=== PATIENT | female | born 1935 | race Caucasian/White ===

== ENCOUNTER 2021-07-10 11:49 | Outpatient (CLI) | payer MEDICARE, OTHER, SELFPAY ==
--- NOTE | 2021-07-10 12:03 | MM_ITS ---
WS: [id number] BILATERAL SCREENING 3D TOMOSYNTHESIS DIGITAL MAMMOGRAM WITH CAD HISTORY: SCREENING COMPARISON: 02/24/2018 and 02/12/2017 Bilateral CC and MLO views submitted. Computer aided detection analyzed. Breast composition: The breasts are heterogeneously dense, which may obscure small masses. No suspici ous masses, microcalcifications or architectural distortion. Postsurgical changes are noted within th e anterior RIGHT breast. There are benign scattered calcifications and asymmetries which are stable. MM/[id number] IMPRESSION: BI-RADS: 2-Benign FOLLOW UP: 1 Year Follow-up
== END 2021-07-10 11:50 | disposition home or self-care (01) ==
LOC: RADSHAW 12:00
PROVIDERS: PCP Family Medicine; Visit Provider Family Medicine
DX: Z12.31 Encounter for screening mammogram for malignant neoplasm of breast (principal)
CPT/HCPCS: 77063; 77067

== ENCOUNTER 2022-12-03 13:46 | Outpatient (CLI) | payer MEDICARE, OTHER, SELFPAY ==
--- NOTE | 2022-12-03 13:57 | MM_ITS ---
WS: [id number] BILATERAL SCREENING DIGITAL TOMOSYNTHESIS MAMMOGRAM WITH CAD HISTORY: SCREENING COMPARISON: 07/10/2021, 02/24/2018 Bilateral CC and MLO views with tomosynthesis and synthetic mammography submitted. Computer aided det ection analyzed. Breast composition: The breasts are heterogeneously dense, which may obscure small masses. No suspici ous masses, microcalcifications or architectural distortion. Bilateral breast calcifications. The asy mmetry and mild distortion in the anterior right breast is stable over multiple years. IMPRESSION: MM/[place] [id number] BI-RADS: 2-Benign FOLLOW UP: 1 Year Follow-up
== END 2022-12-03 13:47 | disposition home or self-care (01) ==
LOC: RAD 13:55 → MOBLMAM 13:57
PROVIDERS: PCP Family Medicine; Visit Provider Family Medicine
DX: Z12.31 Encounter for screening mammogram for malignant neoplasm of breast (principal); C44.719 Basal cell carcinoma of skin of left lower limb, including hip; D48.5 Neoplasm of uncertain behavior of skin; L82.1 Other seborrheic keratosis; L81.4 Other melanin hyperpigmentation
CPT/HCPCS: 11102; 77063; 77067; 99213

== ENCOUNTER → 2022-12-15 09:18 | Outpatient (BNVA) | payer MEDICARE, OTHER, SELFPAY | PROVIDERS: PCP Family Medicine; Visit Provider Dermatology | DX: C44.311 Basal cell carcinoma of skin of nose (principal) | CPT/HCPCS: 13152; 17311 ==

== ENCOUNTER → 2022-12-24 08:51 | Outpatient (BNVA) | payer MEDICARE, OTHER, SELFPAY | PROVIDERS: PCP Family Medicine; Visit Provider Dermatology | DX: Z48.02 Encounter for removal of sutures (principal) | CPT/HCPCS: 99212 ==

== ENCOUNTER → 2023-06-09 09:56 | Outpatient (BNVA) | payer MEDICARE, OTHER, SELFPAY | PROVIDERS: PCP Family Medicine; Visit Provider Nurse Practitioner Family | DX: L82.1 Other seborrheic keratosis (principal); L81.4 Other melanin hyperpigmentation; L57.0 Actinic keratosis; Z85.828 Personal history of other malignant neoplasm of skin; L23.9 Allergic contact dermatitis, unspecified cause | CPT/HCPCS: 17000; 99213 ==

== ENCOUNTER 2023-10-26 11:27 | Outpatient (CLI) | payer MEDICARE, OTHER, SELFPAY ==
--- NOTE | 2023-10-26 11:33 | XR_ITS ---
WS: [email or web address] SCREENING DEXA SCAN [employer] CLINICAL INFORMATION: POSTMENOPAUSAL, OSTEOPOROSIS COMPARISON: None. FINDINGS: The L1-L4 bone mineral density measures 1.374 g/cm2. This corresponds to a T score score of 1.6 and Z score of 3.6. Left femoral neck bone mineral density measures 0.813 g/cm2. This corresponds to a T score of -1.5 an d Z score of 0.9. Right femoral neck bone mineral density measures 0.787 g/cm2. This corresponds to a T score -1.8of an d Z score of 0.7. Mean femoral neck bone mineral density measures 0.800 g/cm2. This corresponds to a T score of -1.6 an d Z score of 0.8. XR/XR DEXA axial skeleton* [id number] IMPRESSION: Normal bone mineralization lumbar spine. Osteopenia femoral necks. Patient's FRAX calculated 10 year probability for major osteoporotic fracture i s 14.0% and osteoporotic hip fracture is 4.6%.
== END 2023-10-26 11:28 | disposition home or self-care (01) ==
LOC: RAD 11:27
PROVIDERS: PCP Family Medicine; Visit Provider Family Medicine
DX: Z78.0 Asymptomatic menopausal state (principal); M85.88 Other specified disorders of bone density and structure, other site
CPT/HCPCS: 77080

== ENCOUNTER 2023-11-05 10:24 | Emergency (ER) | payer MEDICARE, OTHER, SELFPAY ==
--- NOTE | 2023-11-05 10:28 | ECG_ITS ---
[facility] Test Date: 2023-11-05 Pat Name: Diya Toney Department: Room: Gender: Female Title Vehicle Service Attendant: : 1935 Requested By: Rod Palencia Order Number: [id number] Aldo MD: Anders Lyle M.D. Measurements Intervals [place] Rate: 82 P: 81 FL: 164 QRS: 75 QRSD: 82 T: 53 QT: 369 QTc: 431 Interpretive Statements SINUS RHYTHM WITH OCCASIONAL VENTRICULAR PREMATURE COMPLEXES SEPTAL MYOCARDIAL INFARCTION , PROBABLY OLD [40+ ms Q WAVE IN V1/V2] No previous ECG available for comparison Electronically Signed On 11-05-2023 15:34:09 CDT by Anders Lyle M.D. [id number] f
[2023-11-05 10:47] VITALS: BP 166/87; PULSE 105; RESP 20; TEMP 36.8; O2SAT 95; BMI 25.4
--- NOTE | 2023-11-05 10:58 | XRR_ITS ---
PROCEDURE INFORMATION: Exam: XR Chest Exam date and time: 11/05/2023 11:09 AM Age: 88 years old Clinical indication: Shortness of breath; Additional info: SOB TECHNIQUE: Imaging protocol: Radiologic exam of the chest. Views: 1 view. COMPARISON: No relevant prior studies available. FINDINGS: Lungs: Hyperinflated lungs. No focal consolidation. Pleural spaces: No large pleural effusion. No distinct pneumothorax. Heart/Mediastinum: Cardiomediastinal silhouette is midline and normal in size. Bones/joints: No acute osseous findings. XR/XR chest 1V portable [id number] IMPRESSION: 1. No focal consolidation. 2. Hyperinflated lungs, which can be seen with COPD.
--- NOTE | 2023-11-05 11:12 | W.ED.CHESTPA ---
Documented by User: MICHAEL Garcia 11/05/23 16:44 HPI - Chest Pain General: Chief Complaint: Upper Respiratory Infection Stated Complaint: chest pain, sob ref amadou ramos Time Seen by Provider: 11/05/23 10:58 Source: patient Mode of arrival: ambulatory Limitations: no limitations History of Present Illness: Patient is an 88 y/o female with past medical history of hypothyroid and HTN who presents to the ED c/o chest pain onset prior to arrival. She is no longer having the pain. The pain lasted for a couple hours and was located epigastric without radiation. She states she was doing nothing at onset, and that it was a 6/10 tightness. She also stated that it felt like an elephant on my chest and had associated SOB. She notes that she is still short of breath at this time. She recently finished a round of abx for a UTI, and notes improvement of these symptoms. She states that she is a healthy individual and has no hx of NC or stroke. She does not have any recent cardiac stress testing or echo. No hx of cardiac cath reported. She did not take anything for the CP and states that it just resolved on its own. She takes medication for her BP as well as levothyroxine, no recent changes to these meds. No other symptoms or pertinent historical factors to note at this time. MD complaint: chest pain Onset (ago): hour(s) Timing of current episode: now resolved Prior episodes: No Onset: during rest Pain location: epigastric Pain radiation: none Severity: moderate Pain scale (0-10): 6 Quality: tightness and other ( elephant on chest ) Relieving factors: nothing Exacerbating factors: nothing Associated symptoms: Reports dyspnea; Deny abdominal pain, fever(s), nausea, palpitations or vomiting Treatment prior to arrival: none Risk Factors: Coronary artery disease risk factors: hypertension Thoracic aortic dissection risk factors: none Review of Systems General: Reports: 10 or more systems reviewed and unremarkable except in HPI and below Const: Denies: fever(s), chills or fatigue Eyes: Denies: change in vision ENMT: Denies: throat pain, ear or mastoid pain or nasal discharge Card: Reports: chest pain; Denies: palpitations, swelling of feet/ankles or lightheadedness Resp: Reports: dyspnea; Denies: productive cough or wheezing GI: Denies: abdominal pain, nausea, vomiting, diarrhea or constipation : Denies: flank pain, difficulty voiding, dysuria or urinary frequency Musc: Denies: neck pain, back pain or joint pain Skin/Breast: Denies: rash Neuro: Denies: headache(s), numbness in extremities or weakness in extremities PFSH ED PFSH: Medical History History of nonmelanoma skin cancer Hypothyroid HTN (hypertension) Surgical History History of total knee replacement Social History Smoking and tobacco/nicotine status: never used tobacco/nicotine Physical Exam Const: COMMON NORMALS: no acute distress, patient oriented x3 and no limitations GENERAL APPEARANCE: cooperative, well developed and anxious ORIENTATION/CONSCIOUSNESS: Yes awake, Yes oriented to person, Yes oriented to place and Yes oriented to time HENMT: COMMON NORMALS: normocephalic, atraumatic and hearing grossly normal bilaterally HEAD & SCALP: normocephalic and atraumatic Eye: COMMON NORMALS: Equal, round and reactive pupils present, EOMs intact bilaterally and conjunctivae normal CONJUNCTIVA: Yes conjunctivae normal PUPIL: Yes Equal, round and reactive pupils present Neck/C-Spine: COMMON NORMALS: full ROM, supple and no JVD Resp: COMMON NORMALS: normal respiratory effort, No retractions, No use of accessory muscles and clear to auscultation bilaterally AUSCULTATION: clear to auscultation bilaterally Cardio: COMMON NORMALS: no JVD, regular rate, regular rhythm, No clicks present (Cardio), No murmurs present (Cardio), No rub (Cardio) and Peripheral pulses 2+ throughout RATE: regular rate RHYTHM: regular rhythm PERIPHERAL PULSES: Peripheral pulses 2+ throughout GI: COMMON NORMALS: Normal to inspection, nondistended, normoactive bowel sounds present, Soft to palpation and non-tender AUSCULTATION: Yes normoactive bowel sounds PALPATION: Yes Soft to palpation RECTAL EXAM: deferred Extremity: COMMON NORMALS: normal to inspection, full ROM, capillary refill normal and no pedal edema Neuro: COMMON NORMALS: patient oriented x3, moves all extremities, no focal motor deficits and no sensory deficits noted SENSORIUM/ORIENTATION: Yes oriented to person, Yes oriented to place and Yes oriented to time Psych: COMMON NORMALS: mental status grossly normal and Normal thought process present THOUGHT PROCESS: Normal thought process present Skin: COMMON NORMALS: no rashes or lesions noted GENERAL SKIN EXAM: no rashes or lesions noted Course Vital Signs: Vital signs: Vital Signs Temperature 98.3 F 11/05/23 10:47 Pulse Rate 105 H 11/05/23 10:47 Respiratory Rate 20 H 11/05/23 10:47 Blood Pressure 166/87 11/05/23 10:47 Pulse Oximetry 95 11/05/23 10:47 Oxygen Delivery Me thod Room Air 11/05/23 10:47 MDM - Chest Pain Medical Decision Making Patient presented after acute onset of chest pain or shortness of breath this morning. No pertinent medical history, has history of hypertension well-controlled. She has stated her pain was epigastric, nonradiating, and worse with deep inspiration. On arrival her vitals were unremarkable and her physical examination overall was unremarkable as well. She had no signs of fluid overload. She stated to me that she is very active, works out twice a week and this is never happened to her before she did state that there was a feeling of elephant on her chest. Her initial EKG and repeat EKG both reviewed with Dr. Lopez, showed normal sinus rhythm with some PVCs and no signs of an acute STEMI. Her chest x-ray showed some hyperinflation, however patient is a non-smoker and has no history of COPD. No focal findings otherwise. Her baseline and repeat troponin both were nondiagnostic, and rest of her blood work did not demonstrate any abnormal findings. BNP was noted to be a little elevated, no history of heart failure. Upon recheck of patient, she states she is ready to go home. I informed her of her findings and she is to call her primary care as soon as possible to schedule an outpatient cardiac workup and further evaluation. I do not believe her pain to be of cardiac origin, however this cannot be fully ruled out without obtaining outpatient echo and/or stress testing. Care of this patient is discussed in thorough detail with supervising ED physician, Dr. Lopez, who agrees that patient can be discharged home at this time. I did provide strict return precautions to the patient such that if her pain comes back in any fashion or she has any more episodes of shortness of breath, she will return immediately. She understands this and is discharged home at this time Lab Data 11/05/23 11:23 11/05/23 11:23 Radiology Impressions Chest X-Ray 11/05/23 10:58 IMPRESSION: 1. No focal consolidation. 2. Hyperinflated lungs, which can be seen with COPD. Laboratory Results WBC 8.89 10^3/uL (3.29-11.43) 11/05/23 11:23 RBC 4.54 10^6/uL (3.85-5.65) 11/05/23 11:23 Hgb 14.20 g/dL (11.27-16.99) 11/05/23 11:23 Hct 43.0 % (36-47) 11/05/23 11:23 MCV 94.7 fl (85-98) 11/05/23 11:23 MCH 31.3 pg (27-33) 11/05/23 11:23 MCHC 33.0 g/dL (30-55) 11/05/23 11:23 RDW 14.2 % (12.1-15.1) 11/05/23 11:23 Plt Count 199 10^3/cmm (157-399) 11/05/23 11:23 MPV 12.3 fL (7.4-10.4) H 11/05/23 11:23 Neut % (Auto) 75.4 % 11/05/23 11:23 Lymph % (Auto) 13.4 % 11/05/23 11:23 [place] % (Auto) 9.1 % 11/05/23 11:23 Eos % (Auto) 1.2 % 11/05/23 11:23 Baso % (Auto) 0.7 % 11/05/23 11:23 Neut # (Auto) 6.70 10^3/uL (1.8-7.7) 11/05/23 11:23 Lymph # (Auto) 1.2 10^3/uL (0.8-4.8) 11/05/23 11:23 [place] # (Auto) 0.8 10^3/uL (0.2-0.9) 11/05/23 11:23 Eos # (Auto) 0.1 10^3/uL (0.0-0.8) 11/05/23 11:23 Baso # (Auto) 0.1 10^3/uL (0.0-0.1) 11/05/23 11:23 Nucleated RBC % (auto) 0 % 11/05/23 11:23 Nucleated RBCs # 0.0 /100WBC 11/05/23 11:23 Sodium 138 mmol/L (136-145) 11/05/23 11:23 Potassium 4.9 mmol/L (3.5-5.1) 11/05/23 11:23 Chloride 103 mmol/L (98-107) 11/05/23 11:23 Carbon Dioxide 23 mmol/L (22-29) 11/05/23 11:23 Anion Gap 18.9 (5-19) 11/05/23 11:23 BUN 13 mg/dL (8-23) 11/05/23 11:23 Creatinine 0.6 mg/dL (0.5-0.9) 11/05/23 11:23 GFR Calculation Not Reportable 11/05/23 11:23 Glucose 103 mg/dL (65-115) 11/05/23 11:23 Calculated Osmolality 286 mOsm/kg (285-295) 11/05/23 11:23 Calcium 8.5 mg/dL (8.5-10.5) 11/05/23 11:23 Total Bilirubin 0.4 mg/dL (0.15-1.2) 11/05/23 11:23 AST 20 U/L (0-32) 11/05/23 11:23 ALT 14 U/L (0-33) 11/05/23 11:23 Alkaline Phosphatase 109 U/L (35-105) H 11/05/23 11:23 Troponin T Baseline 11 ng/L (0-10) H 11/05/23 11:23 Troponin T 120 Minute 11.10 ng/L (0-10) H 11/05/23 13:32 Delta Troponin T 0.10 ABS# (0-10) 11/05/23 13:32 NT-Pro-B Natriuret Pep 921 pg/mL (0-450) H 11/05/23 11:23 Total Protein 6.8 g/dL (6.6-8.7) 11/05/23 11:23 Albumin 3.8 g/dL (3.5-5.2) 11/05/23 11:23 Globulin 3.0 g/dL (1.3-4.6) 11/05/23 11:23 Lipase 18 U/L (13-60) 11/05/23 11:23 TSH 0.05 uIU/mL (0.27-4.20) L 11/05/23 11:23 Urine Color Yellow (Yellow) 11/05/23 12:11 Urine Appearance Clear (CLEAR) 11/05/23 12:11 Urine pH 6 (5-7) 11/05/23 12:11 Ur Specific [place] 1.010 (1.005-1.030) 11/05/23 12:11 Urine Protein Neg (Negative) 11/05/23 12:11 Urine Glucose (UA) Norm (Normal) 11/05/23 12:11 Urine Ketones 1+ (Negative) H 11/05/23 12:11 Urine Blood Neg (Negative) 11/05/23 12:11 Urine Nitrate Negative (Negative) 11/05/23 12:11 Urine Bilirubin Neg (Negative) 11/05/23 12:11 Urine Urobilinogen Neg mg/dL (Negative) 11/05/23 12:11 Ur Leukocyte Esterase Negative (Negative) 11/05/23 12:11 All radiology interpretation(s) finalized by discharge Discharge Plan Discharge Patient Disposition: Home Clinical Impression: Chest pain Qualifiers: Chest pain type: chest pain on breathing Qualified Code(s): R07.1 - Chest pain on breathing Condition: Stable Prescriptions: No Action amlodipine 2.5 mg tablet 2.5 mg PO DAILY estradiol 0.5 mg tablet 0.5 mg PO DAILY Rx Instructions: off 5 days; repeat cycle multivitamin [Daily Multi-Vitamin] Tablet 1 tab PO DAILY omega-3 fatty acids 1,000 mg capsule 1,000 mg PO DAILY levothyroxine 150 mcg tablet 150 mcg PO DAILY triamcinolone acetonide 0.1 % ointment 1 applic topical BID Qty: 80 0RF Rx Instructions: Apply to affected area on neck no more than 2 weeks per month. Not for face. PreserVision AREDS 4,296 mcg-226 mg-90 mg Capsule 1 cap PO BID Discharge Orders: Discharge ED (Routine); Ordered 11/05/23 Ordered By: Rod Harris Referrals: Cristiana Mahan MD [Primary Care Provider] - Discharge Diet: Usual diet Discharge Activity: Increase activity as tolerated Patient Instructions: Chest Pain (ED) Activity Restrictions/Additional Instructions: Please follow up with your primary care provider early next week for further outpatient cardiac workup including stress test and/or echocardiogram. If you develop any new or concerning symptoms, or recurrence of chest pain, please present back to the emergency department immediately for re-evaluation. Coding Level of Care Code ED [facility]ing [facility] Documented by User: Joaquin Lopez DO 11/05/23 18:03 HPI - Chest Pain General: Chief Complaint: Upper Respiratory Infection Stated Complaint: chest pain, sob ref [place] Time Seen by Provider: 11/05/23 10:58 History of Present Illness: Patient is an 88 y/o female with past medical history of hypothyroid and HTN who presents to the ED c/o chest pain onset prior to arrival. She is no longer having the pain. The pain lasted for a couple hours and was located epigastric without radiation. She states she was doing nothing at onset, and that it was a 6/10 tightness. She also stated that it felt like an elephant on my chest and had associated SOB. She notes that she is still short of breath at this time. She recently finished a round of abx for a UTI, and notes improvement of these symptoms. She states that she is a healthy individual and has no hx of NC or stroke. She does not have any recent cardiac stress testing or echo. No hx of cardiac cath reported. She did not take anything for the CP and states that it just resolved on its own. She takes medication for her BP as well as levothyroxine, no recent changes to these meds. No other symptoms or pertinent historical factors to note at this time.. PFS ED PFSH: Medical History History of nonmelanoma skin cancer Hypothyroid HTN (hypertension) Surgical History History of total knee replacement Social History Smoking and tobacco/nicotine status: never used tobacco/nicotine Course Vital Signs: Vital signs: Vital Signs Temperature 98.3 F 11/05/23 10:47 Pulse Rate 105 H 11/05/23 10:47 Respiratory Rate 20 H 11/05/23 10:47 Blood Pressure 166/87 11/05/23 10:47 Pulse Oximetry 95 11/05/23 10:47 Oxygen Delivery Me thod Room Air 11/05/23 10:47 MDM - Chest Pain Medical Decision Making Patient presented after acute onset of chest pain or shortness of breath this morning. No pertinent medical history, has history of hypertension well-controlled. She has stated her pain was epigastric, nonradiating, and worse with deep inspiration. On arrival her vitals were unremarkable and her physical examination overall was unremarkable as well. She had no signs of fluid overload. She stated to me that she is very active, works out twice a week and this is never happened to her before she did state that there was a feeling of elephant on her chest. Her initial EKG and repeat EKG both reviewed with Dr. Lopez, showed normal sinus rhythm with some PVCs and no signs of an acute STEMI. Her chest x-ray showed some hyperinflation, however patient is a non-smoker and has no history of COPD. No focal findings otherwise. Her baseline and repeat troponin both were nondiagnostic, and rest of her blood work did not demonstrate any abnormal findings. BNP was noted to be a little elevated, no history of heart failure. Upon recheck of patient, she states she is ready to go home. I informed her of her findings and she is to call her primary care as soon as possible to schedule an outpatient cardiac workup and further evaluation. I do not believe her pain to be of cardiac origin, however this cannot be fully ruled out without obtaining outpatient echo and/or stress testing. Care of this patient is discussed in thorough detail with supervising ED physician, Dr. Lopez, who agrees that patient can be discharged home at this time. I did provide strict return precautions to the patient such that if her pain comes back in any fashion or she has any more episodes of shortness of breath, she will return immediately. She understands this and is discharged home at this time Chart reviewed and patient discussed with midlevel. Agree with assessment and plan. Lab Data 11/05/23 11:23 11/05/23 11:23 Radiology Impressions Chest X-Ray 11/05/23 10:58 IMPRESSION: 1. No focal consolidation. 2. Hyperinflated lungs, which can be seen with COPD. Laboratory Results WBC 8.89 10^3/uL (3.29-11.43) 11/05/23 11:23 RBC 4.54 10^6/uL (3.85-5.65) 11/05/23 11:23 Hgb 14.20 g/dL (11.27-16.99) 11/05/23 11:23 Hct 43.0 % (36-47) 11/05/23 11:23 MCV 94.7 fl (85-98) 11/05/23 11:23 MCH 31.3 pg (27-33) 11/05/23 11:23 MCHC 33.0 g/dL (30-55) 11/05/23 11:23 RDW 14.2 % (12.1-15.1) 11/05/23 11:23 Plt Count 199 10^3/cmm (157-399) 11/05/23 11:23 MPV 12.3 fL (7.4-10.4) H 11/05/23 11:23 Neut % (Auto) 75.4 % 11/05/23 11:23 Lymph % (Auto) 13.4 % 11/05/23 11:23 [place] % (Auto) 9.1 % 11/05/23 11:23 Eos % (Auto) 1.2 % 11/05/23 11:23 Baso % (Auto) 0.7 % 11/05/23 11:23 Neut # (Auto) 6.70 10^3/uL (1.8-7.7) 11/05/23 11:23 Lymph # (Auto) 1.2 10^3/uL (0.8-4.8) 11/05/23 11:23 [place] # (Auto) 0.8 10^3/uL (0.2-0.9) 11/05/23 11:23 Eos # (Auto) 0.1 10^3/uL (0.0-0.8) 11/05/23 11:23 Baso # (Auto) 0.1 10^3/uL (0.0-0.1) 11/05/23 11:23 Nucleated RBC % (auto) 0 % 11/05/23 11:23 Nucleated RBCs # 0.0 /100WBC 11/05/23 11:23 Sodium 138 mmol/L (136-145) 11/05/23 11:23 Potassium 4.9 mmol/L (3.5-5.1) 11/05/23 11:23 Chloride 103 mmol/L (98-107) 11/05/23 11:23 Carbon Dioxide 23 mmol/L (22-29) 11/05/23 11:23 Anion Gap 18.9 (5-19) 11/05/23 11:23 BUN 13 mg/dL (8-23) 11/05/23 11:23 Creatinine 0.6 mg/dL (0.5-0.9) 11/05/23 11:23 GFR Calculation Not Reportable 11/05/23 11:23 Glucose 103 mg/dL (65-115) 11/05/23 11:23 Calculated Osmolality 286 mOsm/kg (285-295) 11/05/23 11:23 Calcium 8.5 mg/dL (8.5-10.5) 11/05/23 11:23 Total Bilirubin 0.4 mg/dL (0.15-1.2) 11/05/23 11:23 AST 20 U/L (0-32) 11/05/23 11:23 ALT 14 U/L (0-33) 11/05/23 11:23 Alkaline Phosphatase 109 U/L (35-105) H 11/05/23 11:23 Troponin T Baseline 11 ng/L (0-10) H 11/05/23 11:23 Troponin T 120 Minute 11.10 ng/L (0-10) H 11/05/23 13:32 Delta Troponin T 0.10 ABS# (0-10) 11/05/23 13:32 NT-Pro-B Natriuret Pep 921 pg/mL (0-450) H 11/05/23 11:23 Total Protein 6.8 g/dL (6.6-8.7) 11/05/23 11:23 Albumin 3.8 g/dL (3.5-5.2) 11/05/23 11:23 Globulin 3.0 g/dL (1.3-4.6) 11/05/23 11:23 Lipase 18 U/L (13-60) 11/05/23 11:23 TSH 0.05 uIU/mL (0.27-4.20) L 11/05/23 11:23 Urine Color Yellow (Yellow) 11/05/23 12:11 Urine Appearance Clear (CLEAR) 11/05/23 12:11 Urine pH 6 (5-7) 11/05/23 12:11 Ur Specific [place] 1.010 (1.005-1.030) 11/05/23 12:11 Urine Protein Neg (Negative) 11/05/23 12:11 Urine Glucose (UA) Norm (Normal) 11/05/23 12:11 Urine Ketones 1+ (Negative) H 11/05/23 12:11 Urine Blood Neg (Negative) 11/05/23 12:11 Urine Nitrate Negative (Negative) 11/05/23 12:11 Urine Bilirubin Neg (Negative) 11/05/23 12:11 Urine Urobilinogen Neg mg/dL (Negative) 11/05/23 12:11 Ur Leukocyte Esterase Negative (Negative) 11/05/23 12:11 Discharge Plan Discharge Patient Disposition: Home Clinical Impression: Chest pain Qualifiers: Chest pain type: chest pain on breathing Qualified Code(s): R07.1 - Chest pain on breathing Condition: Stable Prescriptions: No Action amlodipine 2.5 mg tablet 2.5 mg PO DAILY estradiol 0.5 mg tablet 0.5 mg PO DAILY Rx Instructions: off 5 days; repeat cycle multivitamin [Daily Multi-Vitamin] Tablet 1 tab PO DAILY omega-3 fatty acids 1,000 mg capsule 1,000 mg PO DAILY levothyroxine 150 mcg tablet 150 mcg PO DAILY triamcinolone acetonide 0.1 % ointment 1 applic topical BID Qty: 80 0RF Rx Instructions: Apply to affected area on neck no more than 2 weeks per month. Not for face. PreserVision AREDS 4,296 mcg-226 mg-90 mg Capsule 1 cap PO BID Discharge Orders: Discharge ED (Routine); Ordered 11/05/23 Ordered By: Rod Harris Referrals: Cristiana Mahan MD [Primary Care Provider] - Discharge Diet: Usual diet Discharge Activity: Increase activity as tolerated Patient Instructions: Chest Pain (ED) Activity Restrictions/Additional Instructions: Please follow up with your primary care provider early next week for further outpatient cardiac workup including stress test and/or echocardiogram. If you develop any new or concerning symptoms, or recurrence of chest pain, please present back to the emergency department immediately for re-evaluation. Coding Level of Care Code ED [facility]ing [facility]
[2023-11-05 11:30] LABS: Basophils # 0.1 10^3/uL (0.0-0.1); Basophils % 0.7 %; Eosinophils # 0.1 10^3/uL (0.0-0.8); Eosinophils % 1.2 %; Lymphocytes # 1.2 10^3/uL (0.8-4.8); Lymphocytes % 13.4 %; Mean Corpuscular Hemoglobin 31.3 pg (27-33); Mean Corpuscular Volume 94.7 fl (85-98); Mean Platelet Volume 12.3 fL (7.4-10.4); Monocytes # 0.8 10^3/uL (0.2-0.9); Monocytes % 9.1 %; Neutrophils % 75.4 %; Nucleated Red Blood Cells % 0 %; Platelet Count 199 10^3/cmm (157-399); Red Blood Count 4.54 10^6/uL (3.85-5.65); Red Cell Distribution Width 14.2 % (12.1-15.1); White Blood Count 8.89 10^3/uL (3.29-11.43)
[2023-11-05 11:49] LABS: Troponin(5th) Baseline 11 ng/L (0-10)
[2023-11-05 11:56] LABS: NT Pro B Type Natriuretic Pept 921 pg/mL (0-450); Thyroid Stimulating Hormone 0.05 uIU/mL (0.27-4.20)
[2023-11-05 12:07] LABS: Alanine Aminotransferase 14 U/L (0-33); Albumin Level 3.8 g/dL (3.5-5.2); Anion Gap 18.9 (5-19); Aspartate Amino Transferase 20 U/L (0-32); Blood Urea Nitrogen 13 mg/dL (8-23); Calcium 8.5 mg/dL (8.5-10.5); Chloride 103 mmol/L (98-107); Creatinine Clr Calc Pharmacy 44.1745; Glucose 103 mg/dL (65-115); Lipase 18 U/L (13-60); Osmolality Calculated 286 mOsm/kg (285-295); Potassium 4.9 mmol/L (3.5-5.1); Sodium 138 mmol/L (136-145); Total Bilirubin 0.4 mg/dL (0.15-1.2); Total Protein 6.8 g/dL (6.6-8.7)
[2023-11-05 12:08] LABS: Carbon Dioxide 23 mmol/L (22-29)
[2023-11-05 12:15] LABS: Alkaline Phosphatase 109 U/L (35-105)
[2023-11-05 12:46] LABS: Add Urine Microscopic? NO; Charge for UA Resulting for Rev
[2023-11-05 12:54] LABS: Bilirubin Urine Neg (Negative); Blood Urine Neg (Negative); Glucose Urine UA Norm (Normal); Ketones Urine 1+ (Negative); Leukocyte Esterase Urine Negative (Negative); Nitrate Urine Negative (Negative); Protein Urine Neg (Negative); Urine Appearance Clear (CLEAR); Urine Color Yellow (Yellow); Urobilinogen Urine Neg (Negative); pH Urine 6 (5-7)
--- NOTE | 2023-11-05 13:10 | ECG_ITS ---
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 Measurements Intervals [place] Rate: 82 P: 79 NE: 173 QRS: 81 QRSD: 86 T: 53 QT: 397 QTc: 464 Interpretive Statements SINUS RHYTHM WITH SINUS ARRHYTHMIA SEPTAL MYOCARDIAL INFARCTION , PROBABLY OLD [40+ ms Q WAVE IN V1/V2] Compared to ECG 11/05/2023 10:28:37 Ventricular premature complex(es) no longer present Myocardial infarct finding still present Electronically Signed On 11-05-2023 15:35:00 CDT by Anders Lyle M.D. [email or web address]cursosMédecins Sans Frontièressub[facility].[employer]/store/OM/[id number]
== END 2023-11-05 14:36 | disposition home or self-care (01) ==
PROVIDERS: Emergency Provider Physician Assistant; PCP Family Medicine
DX: R07.1 Chest pain on breathing (principal); I10 Essential (primary) hypertension
CPT/HCPCS: 36415; 71045; 80053; 81003; 83690; 83880; 84443; 84484; 85025; 93005; 99285

== ENCOUNTER → 2023-12-13 09:25 | Outpatient (BNVA) | payer MEDICARE, OTHER, SELFPAY | PROVIDERS: PCP Family Medicine; Visit Provider Nurse Practitioner Family | DX: L57.0 Actinic keratosis (principal); L82.1 Other seborrheic keratosis; L81.4 Other melanin hyperpigmentation; Z85.828 Personal history of other malignant neoplasm of skin | CPT/HCPCS: 17000; 99213 ==

== ENCOUNTER 2023-12-27 11:36 | Outpatient (CLI) | payer MEDICARE, OTHER, SELFPAY ==
--- NOTE | 2023-12-27 11:37 | USCV_ITS ---
Stress Echo Diya Toney Age: 88 Gender: F : 1935 Exam Date: 12/27/2023 11:53 Ordering Phys: Cristiana Mahan MD Technologist: Exam Location: [facility] [place]: CP, cough, dyspnea Rhythm: Sinus Patient History: HTN Cardiac Medications: amlodipine Medications in past 24 hours: no Contrast: Stress Results Protocol: Roberto Total dose(mL): Exercise Duration (min:sec): 3:22 METS: 7.0 Resting HR: 83 Resting BP: 160 / 74 Peak HR: 133 Peak BP: 180 / 106 Max Predicted HR: 132 101 % Max Predicted HR Target HR: 112 Double Product: 89710 Stress Summary: The patient's target heart rate was achieved The hemodynamic response to exercise was normal BP Response: Normal Reason for Termination: Maximal effort/unable to continue, Reached target heart rate or work-load Cardiac Symptoms: Short of Breath ECG Analysis Resting ECG: Sinus rhythm, normal axis, no significant ST-T changes at the baseline noted. Stress ECG: At the peak exercise level, no significant ST-T changes suggestive of ischemia noted. Arrhythmia: PVCs seen MEASUREMENTS (Male/Female) Normal Values FINDINGS At baseline LV systolic function is normal with EF of 55 to 60%. No regional wall motion abnormalities are seen. At heart rates above target heart rate, no regional wall motion abnormalities are seen. LV became hyperdynamic. CONCLUSIONS Baseline echocardiogram shows normal LV systolic function Stress echocardiogram is not indicative of ischemia Stress EKG portion not showing ischemia Kevin Gonzalez MD (Electronically Signed) Final Date: 28 December 2023 10:30 S
--- NOTE | 2023-12-27 11:38 | ECG_ITS ---
[facility] Test Date: 2023-12-27 Pat Name: Diya Toney Department: Room: Gender: Female Education Administrative Assistant: Oj Chapman : 1935 Requested By: Cristiana Douglas Order Number: [id number] Carlson MD: Kevin Gonzalez M.D. Interpretive Statements NAME OF STUDY: TREADMILL STRESS ECHOCARDIOGRAM INDICATION: [CP, cough, dyspnea, ] EXERCISE DATA: The patient was exercised by Roberto protocol. Baseline heart rate was 82 beats per minute. Baseline blood pressure was 160/74 millimeters of mercury. Maximal predicted heart rate was 132 beats per minute. Maximum heart rate achieved was 133, which was 100% of the maximum predicted heart rate. Maximum blood pressure was 180/81 millimeters of mercury. Total exercise time was 3 minutes 22 seconds. Maximum METs achieved was 7. The reason for ending the test was target heart achieved. The patient complained of shortness of breath during the stress test, which then resolved at the end of the test. ELECTROCARDIOGRAM: BASELINE: Showed sinus rhythm, normal axis, no significant ST-T changes at the baseline noted. [] EXERCISE: At the peak exercise level, [] No significant ST-T changes suggestive of ischemia noted. [] RECOVERY: During the recovery period, heart rate dropped appropriately. No significant ST-T changes in the recovery suggestive of ischemia noted. [] CONCLUSION: 1. Exercise capacity is fair 2. Heart rate response was appropriate. 3. Blood pressure response was appropriate. 4. Symptoms not suggestive of ischemia. 5. Electrocardiogram portion of the stress test was not suggestive of ischemia. 6. Stress echocardiogram will be reported separately. Electronically Signed On 12-28-2023 10:10:44 CDT by Kevin Gonzalez M.D. [id number]
[2023-12-27 11:45] VITALS: BMI 25.1
[2023-12-27 12:07] VITALS: BP 161/74; PULSE 87
== END 2023-12-27 11:37 | disposition home or self-care (01) ==
LOC: CDL 11:36
PROVIDERS: PCP Family Medicine; Visit Provider Family Medicine
DX: R07.9 Chest pain, unspecified (principal); R05.9 Cough, unspecified; R06.00 Dyspnea, unspecified
CPT/HCPCS: 93017; 93350

== ENCOUNTER → 2024-04-05 09:06 | Outpatient (BNVA) | payer MEDICARE, OTHER, SELFPAY | PROVIDERS: PCP Family Medicine; Visit Provider Nurse Practitioner Family | DX: L57.0 Actinic keratosis (principal); Z08 Encounter for follow-up examination after completed treatment for malignant neoplasm; Z85.828 Personal history of other malignant neoplasm of skin | CPT/HCPCS: 99214 ==

== ENCOUNTER → 2024-09-27 14:23 | Outpatient (BNVA) | payer MEDICARE, OTHER, SELFPAY | PROVIDERS: PCP Family Medicine; Visit Provider Dermatology | DX: Z08 Encounter for follow-up examination after completed treatment for malignant neoplasm (principal); Z85.828 Personal history of other malignant neoplasm of skin; D48.5 Neoplasm of uncertain behavior of skin | CPT/HCPCS: 11102; 99213 ==

== ENCOUNTER → 2024-12-12 09:55 | Outpatient (BNVA) | payer MEDICARE, OTHER, SELFPAY | PROVIDERS: PCP Family Medicine; Visit Provider Dermatology | DX: C44.311 Basal cell carcinoma of skin of nose (principal) | CPT/HCPCS: 14060; 17311 ==